=== PATIENT | male | born 1940 | race Caucasian/White ===

== ENCOUNTER 2016-11-16 08:09 | Inpatient (IN) | payer MEDICARE, OTHER ==
[~2016-11-16] VITALS: Ht 185.4 cm; Wt 97.7 kg
[2016-11-16] VITALS (14 sets, daily range): BP systolic 110–150; BP diastolic 64–93
[~2016-11-16 08:09] MED LIST: AUGMENTIN875TAB PO; BENICAR20 MG OR; CICLOPIROX NAIL L8 % EX; CLARITIN10 M1 PO; CRESTOR20 MG PO; DILTIAZEM120 M1 OR; DILTIAZEM120 M1 PO; DILTIAZEM240 M1 PO; DOXYCYCL HYC100 MG PO; EPIPEN 2-PAK0.3 MG IM; FLEXERIL5 M1 PO; FLONASE NASAL50 MCG; LO-DOSE ASA81 MG PO; NAPROSYN500 MG PO; PREDNISONE20 MG OR
--- NOTE | 2016-11-16 08:09 | NUR ---
PT IMMEDIATELY TO ROOM 12 VIA WHEELCHAIR.
[2016-11-16] MEDS ORDERED: METO25TAB PO (08:41)
[2016-11-16 08:56] LABS: HEMATOCRIT 51.4 % (39.0-50.0); HEMOGLOBIN 17.4 g/dl (14.0-18.0); IMMATURE GRANULOCYTES 0.3 % (0.0-1.0); MEAN CELL VOLUME 98.7 fL CALC (80.0-100.0); MEAN CORPUSCULAR HGB 33.4 pG CALC (26.0-32.0); MEAN CORPUSCULAR HGB CONC 33.9 g/L CALC (32.0-36.0); NEUT# 2.28 thou/uL (1.82-7.42); RED BLOOD COUNT 5.21 mill/uL (4.70-6.10); RED CELL DISTRI WIDTH 14.3 % (11.5-15.5)
[2016-11-16 09:11] LABS: ALBUMIN 4.6 g/dL (3.2-5.0); ALKALINE PHOSPHATASE 160 u/l (38-126); ANION GAP 18 (6-22 (CALC)); BILIRUBIN, TOTAL 1.6 mg/dL (0.0-1.4); BUN 11 mg/dL (8-23); BUN/CREATININE RATIO 9 (12-20 (CALC)); CALCIUM 9.7 mg/dL (8.4-10.2); CARBON DIOXIDE 26 mmol/l (22-30); CHLORIDE 102 mmol/l (95-108); CREATININE 1.2 mg/dL (0.7-1.3); GFR 59 ML/MIN (>=60 (CALC)); GFR FOR AFR.AMER. > 60 ML/MIN (>=60 (CALC)); GLUCOSE 137 mg/dL (82-115); POTASSIUM 4.3 mmol/l (3.5-5.1); SGOT/AST 73 u/l (19-48); SGPT/ALT 53 u/l (11-66); SODIUM 142 mmol/l (137-146); TOTAL PROTEIN 8.5 g/dL (6.3-8.2)
[2016-11-16 09:19] LABS: D-DIMER 16.38 mg/L (0.19-0.60); PROTHROMBIN TIME 11.1 SECONDS (9.0-12.5)
[2016-11-16 09:23] LABS: MYOGLOBIN 54 ng/mL (0 - 121)
--- NOTE | 2016-11-16 09:25 | NUR ---
PT TO CT VIA STRETCHER. VENTI MASK IN PLACE. RESP EVEN AND UNLABORED. IV SITE HEALTHY TO LAC.
--- NOTE | 2016-11-16 10:46 | NUR ---
PT RETURNED FROM CT. ADVISED OF WAIT TIME. VENTI MASK AT 50% CONTINUES. IV SITE HEALTHY TO RAC. VSS. SATS 93%.
--- NOTE | 2016-11-16 11:00 | NUR ---
AT BEDSIDE DISCUSSING POC W/PT. DR ROMAN AND ROSE TO BE CONTACTED BY ER .
--- NOTE | 2016-11-16 11:07 | NUR ---
SB[facility] PRINTED TO [facility] AT 1104.
--- NOTE | 2016-11-16 11:34 | NUR ---
PT TO US VIA STRETCHER. IV SITE HEALTHY. VENTIMASK CONTINUES.
--- NOTE | 2016-11-16 11:35 | NUR ---
REPORT PROVIDED TO CHRIS ROSENBERG IN ICU.
[2016-11-16 11:38] LABS: URINE BILIRUBIN - DIPSTICK NEGATIVE (NEGATIVE); URINE BLOOD DIPSTICK TRACE-INTACT (NEGATIVE); URINE CLARITY CLEAR; URINE COLOR YELLOW; URINE GLUCOSE - DIPSTICK NEGATIVE (NEGATIVE); URINE KETONE NEGATIVE (NEGATIVE); URINE LEUK ESTERASE NEGATIVE (Negative); URINE NITRITE - DIPSTICK NEGATIVE (Negative); URINE PROTEIN - DIPSTICK NEGATIVE (NEG-TRACE); URINE UROBILINOGEN - DIPSTICK 0.2 E.U./dL (0.2)
--- NOTE | 2016-11-16 12:15 | NUR ---
PT ADMITTED TO ICU BED 1 VIA STRETCHER FROM ER, PT SLID TRANSFERRED SELF FROM STRECTHER TO BED, AND TOLERATED WELL, O2 ON AT VIA 50-% VENTI MASK, SATS 95% ALL MONITORING EQUIPMENT EXPLAINED PRIOR TO APPLICATION, ADMISSION ASSESSMENT COMPLETED SEE INTERVENTIONS, LUNGS CLEAR WITH EXERTIONAL SOB NOTED, PT ENCOURAGED TO REST PRN, PUPILS UNEQUAL L>R NOT NEW PER PT, BOTH REACTIVE, SKIN WARM DRY AND INTACT, WITH NO BREAKDOWN NOTED, ABD SOFT AND BOWEL SOUNDS ACTIVE, DENIES N/V, PPPB SOME DISOCOLORATION NOTED TO BLE, AGAIN NOT NEW PER PATIENT, LYNSEY READING A FIB (ALSO NOT NEW PER PT) RATE 95-118, PT DENIES BEING ON ANTI COAGULATION THERAPY EXCEPT BABY ASA DAILY, BP STABLE LEFT ARM READDS LOW, PT HAD LYMPH GLANS REMOVED FROM THIS SIDE WITH LYMPHOMA 6YRS AGO, R ARM MANUL 150/84, PT IS AFEBRILE, ORIENTED TO ROOM AND UNIT, SAFETY MEASURES INTRODUCED, CALL DURANT WITHIN REACH, WILL CONTINUE TO MONITOR.
--- NOTE | 2016-11-16 12:20 | NUR ---
PT TO ICU BED 1 VIA STRETCHER ON WINDOW AND DOOR INSTALLER FROM US. PT STABLE AT THIS TIME. VENTIMASK IN PLACE. IV SITE HEALTHY.
--- NOTE | 2016-11-16 12:30 | NUR ---
IN TO SEE PATIENT, AT BEDSIDE WELL, PT EDUCATED REGARDING DIAGNOSIS, PLAN OF CARE INCLUDING POTENTIAL LENGTH OF STAY, ALL QUESTIONS ANSWERED, CALL DURANT WITHIN REACH, WILL CONTINUE TO MONITOR.
--- NOTE | 2016-11-16 13:51 | NUR ---
PT RESTING, TAKING FLUIDS PO WITHOUT INCIDENT, DENIES HUNGRY AT THIS TIME AWARE OF NEXT MEAL TIME, GONE AT THIS TIME, PT OFFERS NO COMAPLTINS, CONTINUES TO TOLERATE VENTI MASK, TELE CONTINUES TO READ AFIB RATE 95-115, WILL CONTINUE TO MONITOR.
--- NOTE | 2016-11-16 16:00 | NUR ---
PT RESTING COMFORTABLY IN BED, NO S/S OF DISTRESS, DOZES INTERMITTENLY, CONTINUES TO TOLERATE VENTI MASK WITH NO DISTRESS NOTED, WILL CONTINUE TO MONITOR.
--- NOTE | 2016-11-16 17:15 | NUR ---
CHANGED EARLIER TO OR AT 5L VIA NC BY R.T. WILL MONITORO TOLERANCE CLOSELY
--- NOTE | 2016-11-16 18:07 | NUR ---
PT TOLERATING NC SATS MAINTAINED 94-96% WITH NO DISTRESS NOTED, AT BEDSIDE, TOLERATED PM MEAL WELL WITH NO SHOTNESS OF BREATH OR OBVIOUS DISTRESS NOTED PT ENCOURAGED TO REST DURING MEAL NEEDED, WILL CONTINUE TO MONITOR.
--- NOTE | 2016-11-16 19:15 | NUR ---
pt awake in bed; offers no complaints; assessment completed at this time; pt alert and oriented; denies pain/chest pain; no n/v/ diaphoresis noted; resp even and unlabored; exertional sob noted with minimal activity or while conversing; lungs clear throughout; skin color wnl; humidified o2 per nc at 5L; o2 sats 94-96%; pt denies sob at present; hr irreg; aflutter on monitor; pulses present; trace edema noted to bilat le; abd soft with bs present; no bm noted per conventional mortgage underwriter; pt admits to voiding without difficulty; no urine to inspect at this time; urinal at bedside; #20 in rac flushed and patent; no redness or edema noted at site; discoloration noted to ble (chronic); plan of care/ pm meds explained/diagnosis explained; call light within reach; will continue to monitor
--- NOTE | 2016-11-16 19:21 | NUR ---
sr with pvc; nonconducted pac present; hr 80s-90s; will continue to monitor
--- NOTE | 2016-11-16 19:58 | NUR ---
awake; offers no complaints; denies needs; iv intact; o2 per nc; call light within reach; will continue to monitor
--- NOTE | 2016-11-16 22:05 | NUR ---
resting with eyes closed; resp even and unlabored; no resp distress noted; o2 per nc at 5L/ humidified; o2 sat 93%; sa with pac/pvc on monitor; iv intact; call light within reach; will continue to monitor
--- NOTE | 2016-11-16 22:59 | NUR ---
resting with eyes closed; easily aroused; offers no complaints; denies sob; lovenox explained and given; new order for eliquis explained; po fluids provided; nc continues; will continue to monitor
--- NOTE | 2016-11-16 23:59 | NUR ---
resting with eyes closed; no distress noted; sa pac/pvc on monitor; o2 per nc; urinal noted with clear dark yellow urine; will continue to monitor
[2016-11-17] VITALS (13 sets, daily range): BP systolic 96–140; BP diastolic 58–76
--- NOTE | 2016-11-17 01:58 | NUR ---
resting with eyes closed; no distress noted; o2 per nc; sa pac/pvc on monitor; o2 sat 94%; will continue to monitor
--- NOTE | 2016-11-17 04:05 | NUR ---
resting with eyes closed; no distress noted; iv intact; sa pac/pvc on monitor; o2 per nc, humidified at 5L; call light within reach; will continue to monitor
--- NOTE | 2016-11-17 06:09 | NUR ---
asleep; resp even and unlabored; o2 per nc; sa pac/pvc on monitor; iv intact; bed in lowest position; call light within reach
--- NOTE | 2016-11-17 07:25 | NUR ---
PT ALERT AND ORIENTED RESTING IN BED, NO S/S OF DISTRESS NOTED PT ADMITS TO EXERTIONAL DYSPNEA, AM ASSESSMENT COMPLETED SEE INTERVENTIONS, LUNGS REMAIN CLEAR WITH EXERTIONAL SOB NOTED, PT ENCOURAGED TO REST PRN, PUPILS UNEQUAL L>R NOT NEW PER PT, BOTH REACTIVE, SKIN WARM DRY AND INTACT, WITH NO BREAKDOWN NOTED, ABD SOFT AND BOWEL SOUNDS ACTIVE, DENIES N/V, PPPB TELE READING A FLUTTER RATE 73, RHYTHM CHANGED FREQUENTLY LAST PM IN AND OUT OF SR WITH PAC/PVC'S AND A FIB FLUTTER, BP STABLE REMAINS STABLE PT IS AFEBRILE, SAFETY MEASURES REINFORCED, CALL DURANT WITHIN REACH, WILL CONTINUE TO MONITOR.
--- NOTE | 2016-11-17 07:45 | NUR ---
SET UP ASSIST PROVIDED FOR AM MEAL, OFFERS NO NEW COMPLAINTS , O2 SATS FLUCAUTE 87-94 LOWER WITH EXERTION, WILL CONTINUE TO MONITOR.
--- NOTE | 2016-11-17 09:15 | NUR ---
PT TAKES AM MEDICATIONS ORDERED, EDUCATION PROVIDED ON NEW MEDICATION RADHA EDUCATED REAGRDING REASON FOR ADMINISTRATION, EXPECTATIONS AND POSSIBLE SIDE EFFECTS, PRINTED INFORMATION PROVIDED WELL, WILL CONTINUE TO MONITOR
--- NOTE | 2016-11-17 09:37 | NUR ---
CURRENTLY AT BEDSIDE, WILL CONTINUE TO MONITOR.
--- NOTE | 2016-11-17 10:00 | NUR ---
SET UP ASSIST PROVIDED FOR AM MADL CARE, AT BEDSIDE AND PROVIDES ASSISTANCE, PT TOLERATED WELL, SATS DECREASED TO 88-92 DURING EXERTION, PT RESTS PRN, WILL CONTINUE TO MONITOR
--- NOTE | 2016-11-17 10:57 | NUR ---
LAB AT BEDSIDE FOR ORDERED BLOODWORK, REMAINS AT BEDSIDE, OFFERS NO NEW COMPLAINTS, WILL CONTINUE TO MONITOR
[2016-11-17 11:06] LABS: HEMATOCRIT 46.5 % (39.0-50.0); HEMOGLOBIN 15.9 g/dl (14.0-18.0); MEAN CELL VOLUME 97.5 fL CALC (80.0-100.0); MEAN CORPUSCULAR HGB 33.3 pG CALC (26.0-32.0); MEAN CORPUSCULAR HGB CONC 34.2 g/L CALC (32.0-36.0); RED BLOOD COUNT 4.77 mill/uL (4.70-6.10); RED CELL DISTRI WIDTH 14.6 % (11.5-15.5)
[2016-11-17 11:25] LABS: ANION GAP 17 (6-22 (CALC)); BUN 18 mg/dL (8-23); BUN/CREATININE RATIO 16 (12-20 (CALC)); CALCIUM 9.2 mg/dL (8.4-10.2); CARBON DIOXIDE 23 mmol/l (22-30); CHLORIDE 105 mmol/l (95-108); CREATININE 1.1 mg/dL (0.7-1.3); GFR > 60 ML/MIN (>=60 (CALC)); GFR FOR AFR.AMER. > 60 ML/MIN (>=60 (CALC)); GLUCOSE 101 mg/dL (82-115); POTASSIUM 4.4 mmol/l (3.5-5.1); SODIUM 141 mmol/l (137-146)
--- NOTE | 2016-11-17 11:40 | NUR ---
SET UP ASSIST PROVIDED FOR PM MEAL, OFFERS NO NEW COMPLAINTS, CALL CARLEEN FINNEY, WILL CONTINUE TO MONITOR
--- NOTE | 2016-11-17 12:45 | NUR ---
RESTING IN BED, OFFERS NO NEW COMPLAINTS, CONTINEUS TOT OTLERATE NC, WILL CONTINUE TO MONITOR.
--- NOTE | 2016-11-17 14:10 | NUR ---
PT RESTING IN BED, OFFERS NO NEW COMPLAINTS, CALL DURANT WITHIN REACH, WILL CONTINUE TO MONITOR.
--- NOTE | 2016-11-17 16:52 | NUR ---
PT RESTING IN BED, ALERT AND ORIENTED BACK AT BEDSIDE, WILL CONTINUE TO MONITOR
--- NOTE | 2016-11-17 18:09 | NUR ---
SET UP ASSIST PROVIDED FRO MEAL
--- NOTE | 2016-11-17 19:05 | NUR ---
pt awake in bed; no distress noted; pt offers no complaints; assessment completed at this time; pt denies pain/chest pain; resp even and unlabored; exertion sob noted; lungs clear/ diminished right base; skin color wnl; o2 per nc at 5L/ humidified; o2 sat currently 91%; loose grab hooker cough noted; hr irreg; sa pac/pvc on monitor; pulses present; trace edema noted to ble; abd soft with bs present; no bm noted per technical report writer; pt admits to voiding without complication; no urine to inspect at this time; #20 in rac saline locked/ flushed and patent; no redness or edema noted at site; plan of care/pm meds explained; call light within reach; will continue to monitor
--- NOTE | 2016-11-17 20:05 | NUR ---
awake; offers no complaints; no distress noted; iv intact; sa/pac on monitor; o2 per nc; call light within reach; will continue to monitor
--- NOTE | 2016-11-17 21:00 | NUR ---
awake; offers no complaints of dyspnea; o2 sat currently 91%; production underwriter accompanied pt to walk within the ICU while monitoring o2 sat; pt able to walk to back door, then front door and back to room; exertional slight sob noted; pt denies breathing difficulty or dizziness while ambulating; hr fluctuating between 91-113 while ambulating; o2 sats fluctuating between 91%-96% on 4L nc while ambulating; monitoring attachments reconnected; will continue to monitor
--- NOTE | 2016-11-17 22:00 | NUR ---
awake; no distress noted; iv intact; sa/pac on monitor; o2 per nc; offers no complaints; call light within reach; will continue to monitor
--- NOTE | 2016-11-17 23:59 | NUR ---
resting with eyes closed; easily aroused; offers no complaints; o2 per nc; sa/pac on monitor; deny needs; call light within reach; will continue to monitor
[2016-11-18] VITALS (7 sets, daily range): BP systolic 114–155; BP diastolic 59–98
--- NOTE | 2016-11-18 02:05 | NUR ---
resting with eyes closed; no distress noted; sa pac/pv on monitor; o2 per nc; will continue to monitor
--- NOTE | 2016-11-18 02:35 | NUR ---
aflutter on monitor
--- NOTE | 2016-11-18 04:15 | NUR ---
resting with eyes closed; no distress noted; resp even and unlabored; o2 per nc; iv intact; sr pac/pvc on monitor; call light within reach; will continue to monitor
--- NOTE | 2016-11-18 05:50 | NUR ---
asleep; no resp distress during the night; hr fluctuating between sa with pac/pvc and aflutter; iv intact; o2 per nc; call light within reach
--- NOTE | 2016-11-18 06:45 | NUR ---
REPORT RECEIVED FROM SHAKIRA ARRIOLA. PT RESTING COMFORTABLY IN BED. O2 REMAINS AT 5L, PULSE OX IS 96%. PT DOES NOT APPEAR TO BE SOB OR IN ANY TYPE OF DISTRESS. CALL LIGHT WITHIN REACH. WILL CONTINUE TO MONITOR.
--- NOTE | 2016-11-18 08:00 | NUR ---
DR. ROSE IN TO SEE PT AT THIS TIME. MEDICATIONS ADJUSTED, AND DISCUSSED WITH PT. PT STATES UNDERSTANDING. DENIES NEEDS OR CONCERNS AT THIS TIME. WILL CONTINUE TO MONITOR.
--- NOTE | 2016-11-18 08:49 | NUR ---
0845 SPO2 IS 94% ON 5L. OXYGEN TURNED DOWN TO 2.5L SPO2 REMAINS AT 90% 0850 OXYGEN TURNED TO 1L AND SPO2 IS AT 87%. OXYGEN TURNED TO 5L AND PATIENT COACHED TO TAKE DEEP BREATHS IN THROUGH THE NOSE AND OUT THROUGH THE MOUTH. SPO2 SLOW TO RISE, OXYGEN DOES REACH 95% ON 5L.
--- NOTE | 2016-11-18 12:53 | NUR ---
[facility] IN TO SEE PT AND SETUP AT HOME OXYGEN THERAPY. MD NOTIFIED, WILL AWAIT FURTHER ORDERS.
[2016-11-18] MEDS ORDERED: ELIQUIS5 MG PO (13:30)
[2016-11-18] MEDS ORDERED: DIGOX250 MCG PO (13:30)
[2016-11-18] MEDS ORDERED: METO50TA52 PO (13:30)
--- NOTE | 2016-11-18 14:53 | NUR ---
Discharge instructions given. Patient verbalizes understanding of same. Discharged in stable condition via Wheelchair to Home with spouse. All belongings sent with pt.
== END 2016-11-18 14:50 | disposition home or self-care (01) | DRG 176 ==
LOC: ENPENDDIS → ED 08:09 → ICU 10:56 → ED-I 11:00 → ICU 11-18 14:50
PROVIDERS: Emergency Medicine; ADMIT Internal Medicine; ATTEND Internal Medicine
DX: I26.99 Other pulmonary embolism without acute cor pulmonale (principal); I27.2 Other secondary pulmonary hypertension; Z94.89 Other transplanted organ and tissue status; I47.1 Supraventricular tachycardia; I48.92 Unspecified atrial flutter; R09.02 Hypoxemia; E78.5 Hyperlipidemia, unspecified; I48.0 Paroxysmal atrial fibrillation; I08.3 Combined rheumatic disorders of mitral, aortic and tricuspid valves; Z85.72 Personal history of non-Hodgkin lymphomas
CPT/HCPCS: J1650; Q9967

== ENCOUNTER → 2018-09-10 | Outpatient (REF) | payer MEDICARE, OTHER ==
[~2018-09-10] MED LIST changes: +DIGOX250 MCG PO; +ELIQUIS5 MG PO; +METO25TAB PO; +METO50TA52 PO
[2018-09-10 14:46] LABS: HEMATOCRIT 47.4 % (39.0-50.0); HEMOGLOBIN 15.9 g/dl (14.0-18.0); IMMATURE GRANULOCYTES 0.2 % (0.0-5.0); MEAN CELL VOLUME 99.8 fL CALC (80.0-100.0); MEAN CORPUSCULAR HGB 33.5 pG CALC (26.0-32.0); MEAN CORPUSCULAR HGB CONC 33.5 g/L CALC (32.0-36.0); NEUT# 2.18 thou/uL (1.82-7.42); RED BLOOD COUNT 4.75 mill/uL (4.70-6.10); RED CELL DISTRI WIDTH 13.2 % (11.5-15.5)
== END | disposition home or self-care (01) ==
LOC: LAB 14:02
PROVIDERS: ATTEND Nurse Practitioner Family
DX: I10 Essential (primary) hypertension (principal)

== ENCOUNTER → 2021-03-23 | Outpatient (REF) | payer MEDICARE, OTHER ==
[2021-03-23 08:38] LABS: HEMATOCRIT 50.2 % (39.0-50.0); HEMOGLOBIN 16.6 g/dl (14.0-18.0); IMMATURE GRANULOCYTES 0.1 % (0.0-5.0); MEAN CORPUSCULAR HGB 33.7 pG CALC (26.0-32.0); MEAN CORPUSCULAR HGB CONC 33.1 g/dL CAL (32.0-36.0); NEUT# 3.18 thou/uL (1.82-7.42); RED BLOOD COUNT 4.92 mill/uL (4.70-6.10); RED CELL DISTRI WIDTH 13.4 % (11.5-15.5)
[2021-03-23 09:08] LABS: ACT PARTIAL THROMBO TIME 26.2 SECONDS (20.0-32.5); PROTHROMBIN TIME 10.5 SECONDS (9.0-12.5)
[2021-03-23 09:13] LABS: ALKALINE PHOSPHATASE 99 u/l (38-126); ANION GAP 12 (6-22 (CALC)); BILIRUBIN, TOTAL 1.3 mg/dL (0.0-1.4); BUN 15 mg/dL (8-23); BUN/CREATININE RATIO 16 (12-20 (CALC)); CALCULATED LDLCHOLESTEROL 169 mg/dL (62-129 (CALC)); CARBON DIOXIDE 29 mmol/l (22-30); CHLORIDE 102 mmol/l (95-108); CHOLESTEROL HDL RATIO 4.3 (<4.4 (CALC)); CREATININE 0.9 mg/dL (0.7-1.3); GFR > 60 ML/MIN (>=60 (CALC)); GFR FOR AFR.AMER. > 60 ML/MIN (>=60 (CALC)); HDL CHOLESTEROL 62 mg/dL (>=40); POTASSIUM 4.3 mmol/l (3.5-5.1); SGOT/AST 25 u/l (19-48); SODIUM 139 mmol/l (137-146); TOTAL CHOLESTEROL 267 mg/dl (0-199); TOTAL PROTEIN 7.1 g/dL (6.3-8.2); TOTAL TRIGLYCERIDES 180 mg/dl (30-149); VLDL CHOLESTROL 36 mg/dl (0-38 (CALC))
== END | disposition home or self-care (01) ==
LOC: LAB 08:06
PROVIDERS: ATTEND Internal Medicine
DX: I48.20 Chronic atrial fibrillation, unspecified (principal); I20.8 Other forms of angina pectoris; Z01.818 Encounter for other preprocedural examination; Z11.52 Encounter for screening for COVID-19